=== PATIENT | female | born 1980 | race Caucasian/White ===

== ENCOUNTER 2018-08-30 15:12 | Emergency (ER) | payer BC ==
[~2018-08-30] VITALS: Ht 170.2 cm; Wt 65.5 kg
[~2018-08-30 15:12] MED LIST: IBU800 M1 PO; MOTRIN 800800 MG/TAB PO; MVI; NEXIUM40 MG PO; NO HOME MEDICATIONS; PERCOCET 325 MG1 TA2 PO; PRENATAL MVI PO; PRENATAL1 TA2 PO; TUMS500 MG PO
[2018-08-30 15:30] VITALS: BP 110/58; TEMP 99.6
[2018-08-30] MEDS ORDERED: NORCO 325 MG-51 TAB PO (17:35)
[2018-08-30] MEDS ORDERED: ZOFRAN ODT4 MG SL (17:35)
[2018-08-30] MEDS ORDERED: CRUTCHES MC ×2 (17:48)
[2018-08-30 18:00] VITALS: PULSE 87
== END 2018-08-30 18:00 | disposition home or self-care (01) ==
LOC: COL.ER 15:12
DX: M25.562 Pain in left knee (principal); Z98.890 Other specified postprocedural states
CPT/HCPCS: L1846

== ENCOUNTER → 2020-07-07 | Outpatient (CLI) | payer BC ==
[~2020-07-07] MED LIST changes: +CRUTCHES MC; +NORCO 325 MG-51 TAB PO; +ZOFRAN ODT4 MG SL
== END ==
LOC: ZCOL.LAB 16:58
DX: Z20.828 Contact with and (suspected) exposure to other viral communicable diseases (principal)

== ENCOUNTER → 2021-03-02 | Outpatient (CLI) | payer BC | LOC: MC.RAD 10:30 | DX: Z12.31 Encounter for screening mammogram for malignant neoplasm of breast (principal) ==

== ENCOUNTER → 2022-03-17 | Outpatient (CLI) | payer BC | LOC: MC.RAD 10:59 | DX: Z12.31 Encounter for screening mammogram for malignant neoplasm of breast (principal) ==